=== PATIENT | male | born 1950 | race Caucasian/White ===

== ENCOUNTER → 2016-10-11 | Outpatient (CLI) | payer OTHER ==
[~2016-10-11] MED LIST: ASA325 MG PO; CELEBREX100 MG PO; HYDREA DPS500 MG PO; HYDREA500 MG PO; MIRALAX PACKET17 GM PO; OXY IR DPS5 MG PO; PROBIOTIC1 EAC1 PO; PROTONIX40 MG PO; SENOKOT S1 TAB PO; TYLENOL DPS325 MG PO; ULTRAM DPS50 MG PO
== END | disposition home or self-care (01) ==
LOC: PTH.S 10:00
DX: Z01.812 Encounter for preprocedural laboratory examination (principal); Z87.01 Personal history of pneumonia (recurrent)

== ENCOUNTER 2016-10-22 09:53 | Inpatient (IN) | payer OTHER ==
[2016-10-25] MEDS ORDERED: HYDREA DPS500 MG PO (11:41)
[2016-10-25] MEDS ORDERED: HYDREA500 MG PO (11:42)
[2016-10-25] MEDS ORDERED: PROBIOTIC1 EAC1 PO (11:42)
[2016-10-25] MEDS ORDERED: PROTONIX40 MG PO (11:43)
[2016-10-25] MEDS ORDERED: ASA325 MG PO (11:43)
[2016-10-25] MEDS ORDERED: MIRALAX PACKET17 GM PO (11:43)
[2016-10-25] MEDS ORDERED: CELEBREX100 MG PO (11:43)
[2016-10-25] MEDS ORDERED: TYLENOL DPS325 MG PO (11:44)
[2016-10-25] MEDS ORDERED: SENOKOT S1 TAB PO (11:44)
[2016-10-25] MEDS ORDERED: ULTRAM DPS50 MG PO (11:44)
[2016-10-25] MEDS ORDERED: OXY IR DPS5 MG PO (11:44)
== END 2016-10-24 16:07 | disposition home or self-care (01) | DRG 470 ==
DX: M17.12 Unilateral primary osteoarthritis, left knee (principal); D62 Acute posthemorrhagic anemia; D45 Polycythemia vera; Z79.82 Long term (current) use of aspirin; M54.9 Dorsalgia, unspecified